=== PATIENT | male | born 1985 | race Caucasian/White ===

== ENCOUNTER 2018-02-21 09:04 | Inpatient (IN) | payer OTHER ==
[~2018-02-21] VITALS: Ht 182.9 cm; Wt 124.9 kg
[2018-02-21 09:12] VITALS: Ht 182.9 cm; Wt 124.9 kg
[2018-02-21 10:01] LABS: BASOPHIL % 0.8 % (0-2); PLATELET COUNT 225 x10^3mcL (130-400); RED CELL DISTRIBUTION WIDTH 12.9 % (11.5-14.5)
[2018-02-21 10:09] LABS: CALCIUM 9.1 mg/dL (8.5-10.1); CARBON DIOXIDE 29.6 mmol/L (21-32); CHLORIDE SERUM 101 mmol/L (98-107); CREATININE SERUM 0.8 mg/dL (0.7-1.3); GFR1 > 60 mL/min; GLUCOSE SERUM 99 mg/dL (74-106); SODIUM SERUM 138 mmol/L (136-145)
[2018-02-21 10:13] LABS: ALBUMIN 4.3 g/dL (3.4-5.0); ALKALINE PHOSPHATASE 128 U/L (46-116); ALT/SGPT 44 U/L (16-63); AST/SGOT 33 U/L (15-37); BILIRUBIN TOTAL 0.96 mg/dL (0.20-1.00); CHOLESTEROL 140 mg/dL (<200); CHOLESTEROL/HDL RATIO 3.9; HDL CHOLESTEROL 36 mg/dL (40-60); LIPASE 75 IU/L (73-393); TOTAL PROTEIN, SERUM 7.3 g/dL (6.4-8.2); TRIGLYCERIDES 171 mg/dL (<150)
[2018-02-21 10:27] LABS: FREE T4 0.99 ng/dL (0.76-1.46); T4(THYROXINE) 9.3 ug/dL (4.7-13.3)
[2018-02-21 10:37] LABS: T3 TOTAL 1.38 ng/mL
[2018-02-21 11:46] LABS: microscopic required? NO
[2018-02-21 12:02] LABS: urine erythrocyte NEGATIVE (NEGATIVE)
[2018-02-21 12:19] LABS: MAGNESIUM 1.9 mg/dL (1.8-2.4); PHOSPHOROUS 3.4 mg/dL (2.5-4.9)
[2018-02-21 12:23] LABS: AMPHETAMINE QUAL UR NONE DETECTED (NEG <=1000)
[2018-02-21 12:43] VITALS: BP 137/67
[2018-02-21 13:30] VITALS: BP 137/67
[2018-02-21 17:59] VITALS: BP 123/69
[2018-02-21 20:50] VITALS: BP 123/66
[2018-02-22 05:01] VITALS: BP 111/54
[2018-02-22 07:05] LABS: CALCIUM 8.7 mg/dL (8.5-10.1); CARBON DIOXIDE 27.1 mmol/L (21-32); CHLORIDE SERUM 105 mmol/L (98-107); CREATININE SERUM 0.7 mg/dL (0.7-1.3); GFR1 > 60 mL/min; GLUCOSE SERUM 94 mg/dL (74-106); MAGNESIUM 2.2 mg/dL (1.8-2.4); POTASSIUM SERUM 4.1 mmol/L (3.5-5.1); SODIUM SERUM 137 mmol/L (136-145)
[2018-02-22 07:31] LABS: BASOPHIL % 0.7 % (0-2); PLATELET COUNT 208 x10^3mcL (130-400); RED CELL DISTRIBUTION WIDTH 13.4 % (11.5-14.5)
[2018-02-22 09:12] VITALS: BP 127/70
[2018-02-22 11:37] VITALS: BP 118/67
== END 2018-02-22 13:44 | disposition home or self-care (01) | DRG 203 ==
LOC: ED 09:04 → DU 11:18
PROVIDERS: Specialist; Student in an Organized Health Care Education/Training Program
DX: M94.0 Chondrocostal junction syndrome [Tietze] (principal); E78.1 Pure hyperglyceridemia; I16.0 Hypertensive urgency; F41.9 Anxiety disorder, unspecified; E66.3 Overweight; Z68.37 Body mass index [BMI] 37.0-37.9, adult
CPT/HCPCS: 83880; 84439; 90658; C9113; J7030; Q0092

== ENCOUNTER 2018-03-01 13:37 | Emergency (ER) | payer OTHER ==
[~2018-03-01] VITALS: Ht 182.9 cm; Wt 125.6 kg
[2018-03-01 13:47] VITALS: Ht 182.9 cm; Wt 125.6 kg
[2018-03-01 14:24] VITALS: BP 157/78
== END 2018-03-01 14:24 | disposition home or self-care (01) ==
LOC: ED 13:37
DX: Z02.79 Encounter for issue of other medical certificate (principal)

== ENCOUNTER 2018-04-23 21:36 | Emergency (ER) | payer OTHER ==
[~2018-04-23] VITALS: Ht 182.9 cm; Wt 128.5 kg
[2018-04-23 22:05] VITALS: Ht 182.9 cm; Wt 128.5 kg
[2018-04-23 23:12] VITALS: BP 129/70
== END 2018-04-23 23:12 | disposition home or self-care (01) ==
LOC: ED 21:36
DX: K08.89 Other specified disorders of teeth and supporting structures (principal)

== ENCOUNTER 2018-04-24 13:12 | Emergency (ER) | payer OTHER ==
[~2018-04-24] VITALS: Ht 182.9 cm; Wt 128.1 kg
[2018-04-24 14:03] VITALS: BP 150/93
== END 2018-04-24 14:03 | disposition home or self-care (01) ==
LOC: ED 13:12
PROC: 3E023NZ Introduction of Analgesics, Hypnotics, Sedatives into Muscle, Percutaneous Approach (ICD-10-PCS; principal; 2018-04-24)
DX: K05.20 Aggressive periodontitis, unspecified (principal); R68.84 Jaw pain
CPT/HCPCS: J1885

== ENCOUNTER 2019-03-19 22:18 | Emergency (ER) | payer OTHER ==
[~2019-03-19] VITALS: Ht 182.9 cm; Wt 103.4 kg
[2019-03-19 22:25] VITALS: Ht 182.9 cm; Wt 103.4 kg
[2019-03-20 00:08] VITALS: BP 115/70
== END 2019-03-20 00:08 | disposition home or self-care (01) ==
LOC: ED 22:18
DX: J02.9 Acute pharyngitis, unspecified (principal); Z98.890 Other specified postprocedural states